=== PATIENT | male | born 1945 | race Caucasian/White ===

== ENCOUNTER → 2017-04-14 08:16 | Outpatient (REF) | payer MEDICARE, SELFPAY ==
[2017-04-14 09:04] LABS: Color, Urine Yellow (Yellow); Glucose, Dipstick 100 mg/dl (Normal); Ketone-Dipstick Negative (Negative); Leukocyte Esterase-Dipstick 500 /ul (Negative); Nitrite-Dipstick Negative (Negative); Occult Blood-Urine 250 /ul (Negative); Protein-Dipstick 100 mg/dl (Negative); Specific Gravity, Urine 1.015 (1.002-1.030); Urine Bilirubin Dipstick Negative (Negative); Urine Clarity Cloudy (Clear); Urine Urobilinogen Normal (Normal)
== END ==
LOC: OLS.ACW300 08:16
PROVIDERS: Visit Provider Family Medicine
DX: J69.0 Pneumonitis due to inhalation of food and vomit (principal); N18.6 End stage renal disease; R27.9 Unspecified lack of coordination; R54 Age-related physical debility; R26.2 Difficulty in walking, not elsewhere classified; Z47.89 Encounter for other orthopedic aftercare
CPT/HCPCS: 81002; 87077; 87086; 87088; 87186

== ENCOUNTER → 2017-04-15 06:00 | Outpatient (REF) | payer MEDICARE, SELFPAY ==
[2017-04-15 07:58] LABS: International Normalized Ratio 2.9; Prothrombin Time (Protime)PT. 29.1 SECONDS (11.7-14.9)
== END ==
LOC: OLS.ACW300 06:00
PROVIDERS: Visit Provider Family Medicine
DX: N18.6 End stage renal disease (principal); R27.9 Unspecified lack of coordination; R26.2 Difficulty in walking, not elsewhere classified; R54 Age-related physical debility; J69.0 Pneumonitis due to inhalation of food and vomit; Z47.89 Encounter for other orthopedic aftercare
CPT/HCPCS: 36415; 85610

== ENCOUNTER → 2017-04-18 05:00 | Outpatient (REF) | payer MEDICARE, SELFPAY ==
[2017-04-18 07:40] LABS: International Normalized Ratio 3.4; Prothrombin Time (Protime)PT. 33.1 SECONDS (11.7-14.9)
== END ==
LOC: OLS.ACW300 05:00
PROVIDERS: Visit Provider Family Medicine
DX: N18.6 End stage renal disease (principal); Z47.89 Encounter for other orthopedic aftercare; R26.2 Difficulty in walking, not elsewhere classified; R54 Age-related physical debility; J69.0 Pneumonitis due to inhalation of food and vomit; R27.9 Unspecified lack of coordination
CPT/HCPCS: 36415; 85610

== ENCOUNTER → 2017-04-21 05:00 | Outpatient (REF) | payer MEDICARE, SELFPAY ==
[2017-04-21 08:42] LABS: International Normalized Ratio 4.6; Prothrombin Time (Protime)PT. 41.4 SECONDS (11.7-14.9)
== END ==
LOC: OLS.ACW300 05:00
PROVIDERS: Visit Provider Family Medicine
DX: N18.6 End stage renal disease (principal); Z47.89 Encounter for other orthopedic aftercare; R26.2 Difficulty in walking, not elsewhere classified; R54 Age-related physical debility; R27.9 Unspecified lack of coordination; J69.0 Pneumonitis due to inhalation of food and vomit
CPT/HCPCS: 36415; 85610

== ENCOUNTER → 2017-04-22 04:30 | Outpatient (REF) | payer MEDICARE, SELFPAY ==
[2017-04-22 07:46] LABS: Prothrombin Time Fingerstick 63.2 SEC (11.9-14.4)
[2017-04-22 08:33] LABS: International Normalized Ratio 4.6; Prothrombin Time (Protime)PT. 41.9 SECONDS (11.7-14.9)
== END ==
LOC: OLS.ACW300 04:30
PROVIDERS: Visit Provider Family Medicine
DX: Z47.89 Encounter for other orthopedic aftercare (principal); R26.2 Difficulty in walking, not elsewhere classified; R54 Age-related physical debility; R27.9 Unspecified lack of coordination; J69.0 Pneumonitis due to inhalation of food and vomit; Z79.01 Long term (current) use of anticoagulants

== ENCOUNTER → 2017-04-23 05:00 | Outpatient (REF) | payer SELFPAY ==
[2017-04-23 06:56] LABS: Prothrombin Time (Protime)PT. 38.3 SECONDS (11.7-14.9)
[2017-04-23 07:06] LABS: International Normalized Ratio 4.1
== END ==
LOC: OLS.ACW300 05:00
PROVIDERS: Visit Provider Family Medicine
DX: Z47.89 Encounter for other orthopedic aftercare (principal); R26.2 Difficulty in walking, not elsewhere classified; R54 Age-related physical debility; R27.9 Unspecified lack of coordination; J69.0 Pneumonitis due to inhalation of food and vomit; Z79.01 Long term (current) use of anticoagulants

== ENCOUNTER → 2017-04-27 05:00 | Outpatient (REF) | payer MEDICARE, SELFPAY ==
[2017-04-27 08:02] LABS: International Normalized Ratio 2.1
[2017-04-27 09:31] LABS: Hematocrit 22.3 % (40-54); Hemoglobin 6.8 g/dl (13.0-16.5); Mean Corp Hgb Conc 30.5 g/gl (32-36); Mean Corpuscular Hgb 24.1 pg (27.0-32.0); Mean Corpuscular Volume 79.1 fL (80-94); Mean Platelet Vol. 11.4 fl (6.2-12.0); Platelet Count 529 K/mm3 (150-450); RBC Distribution Width CV 21.1 % (11.6-14.6); RBC Distribution Width SD 56.1 fl (35.1-43.9); Red Blood Count 2.82 M/mm3 (4.6-6.2); Scan Indicated on CBC? Y/N YES- FLAGS NOTED; White Blood Count 21.1 K/mm3 (4.4-11.0)
[2017-04-27 09:43] LABS: Lactic Acid 0.7 mmol/L (0.4-2.0)
[2017-04-27 09:51] LABS: Anion Gap 10 (5-15); BUN 92 mg/dL (7-18); BUN/Creat Ratio 21.4 RATIO (10-20); Calcium,Total 8.3 mg/dL (8.5-10.1); Chloride 110 mmol/L (98-107); EST Glomerular Filtration Rate 15 mL/min (>60); Est Glom Filt Rate - Afr Amer 18 mL/min (>60); Glucose 25 mg/dL (70-110); Potassium 4.9 mmol/L (3.5-5.1); Sodium Level 141 mmol/L (136-145)
[2017-04-27 09:55] LABS: Differential Comment SCAN
[2017-04-27 20:15] LABS: Vancomycin, Trough Level 11.3 ug/mL (5.0-15.0)
== END ==
LOC: OLS.ACW300 05:00
PROVIDERS: Visit Provider Family Medicine
DX: N18.6 End stage renal disease (principal); Z47.89 Encounter for other orthopedic aftercare; R26.2 Difficulty in walking, not elsewhere classified; R54 Age-related physical debility; R27.9 Unspecified lack of coordination; J69.0 Pneumonitis due to inhalation of food and vomit
CPT/HCPCS: 36415; 80048; 80202; 83605; 85027; 85610

== ENCOUNTER → 2017-04-29 07:00 | Outpatient (REF) | payer MEDICARE, SELFPAY ==
[2017-04-29 08:29] LABS: International Normalized Ratio 2.7; Prothrombin Time (Protime)PT. 27.9 SECONDS (11.7-14.9)
[2017-04-29 08:40] LABS: Vancomycin, Trough Level 20.8 ug/mL (5.0-15.0)
== END ==
LOC: OLS.ACW300 07:00
PROVIDERS: Visit Provider Family Medicine
DX: Z47.89 Encounter for other orthopedic aftercare (principal); R26.2 Difficulty in walking, not elsewhere classified; R54 Age-related physical debility; R27.9 Unspecified lack of coordination; J69.0 Pneumonitis due to inhalation of food and vomit; Z79.01 Long term (current) use of anticoagulants
CPT/HCPCS: 36415; 80202; 85610

== ENCOUNTER → 2017-04-30 | Outpatient (REF) | payer MEDICARE, SELFPAY ==
[2017-04-30 07:27] LABS: Anion Gap 14 (5-15); BUN 71 mg/dL (7-18); BUN/Creat Ratio 17.5 RATIO (10-20); Chloride 109 mmol/L (98-107); Creatinine, Serum 4.06 mg/dL (0.70-1.30); EST Glomerular Filtration Rate 16 mL/min (>60); Est Glom Filt Rate - Afr Amer 19 mL/min (>60); Glucose 162 mg/dL (70-110); Potassium 5.2 mmol/L (3.5-5.1); Sodium Level 140 mmol/L (136-145)
[2017-04-30 07:36] LABS: Hematocrit 24.8 % (40-54); Hemoglobin 7.1 g/dl (13.0-16.5); Mean Corp Hgb Conc 28.6 g/gl (32-36); Mean Corpuscular Hgb 22.7 pg (27.0-32.0); Mean Corpuscular Volume 79.2 fL (80-94); Mean Platelet Vol. 10.8 fl (6.2-12.0); Platelet Count 609 K/mm3 (150-450); RBC Distribution Width CV 22.4 % (11.6-14.6); RBC Distribution Width SD 62.1 fl (35.1-43.9); Red Blood Count 3.13 M/mm3 (4.6-6.2); White Blood Count 14.7 K/mm3 (4.4-11.0)
[2017-04-30 07:38] LABS: International Normalized Ratio 2.9; Prothrombin Time (Protime)PT. 29.5 SECONDS (11.7-14.9)
[2017-04-30 07:39] LABS: Scan Indicated on CBC? Y/N YES- FLAGS NOTED
== END | disposition home or self-care (01) ==
LOC: OLS.ACW300 05:00
PROVIDERS: Visit Provider Family Medicine
DX: Z47.89 Encounter for other orthopedic aftercare (principal); R26.2 Difficulty in walking, not elsewhere classified; R54 Age-related physical debility; R27.9 Unspecified lack of coordination; J69.0 Pneumonitis due to inhalation of food and vomit; Z79.01 Long term (current) use of anticoagulants
CPT/HCPCS: 36415; 80048; 85027; 85610

== ENCOUNTER → 2017-05-01 06:00 | Outpatient (REF) | payer MEDICARE, SELFPAY ==
[2017-05-01 08:37] LABS: Prothrombin Time (Protime)PT. 30.2 SECONDS (11.7-14.9)
[2017-05-01 21:39] LABS: Vancomycin, Trough Level 26.3 ug/mL (5.0-15.0)
== END ==
LOC: OLS.ACW300 06:00
PROVIDERS: Visit Provider Family Medicine
DX: Z47.89 Encounter for other orthopedic aftercare (principal); R26.2 Difficulty in walking, not elsewhere classified; R54 Age-related physical debility; R27.9 Unspecified lack of coordination; J69.0 Pneumonitis due to inhalation of food and vomit; Z79.01 Long term (current) use of anticoagulants
CPT/HCPCS: 36415; 80202; 85610

== ENCOUNTER → 2017-05-02 05:00 | Outpatient (REF) | payer MEDICARE, SELFPAY ==
[2017-05-02 06:49] LABS: International Normalized Ratio 3.1; Prothrombin Time (Protime)PT. 30.6 SECONDS (11.7-14.9)
[2017-05-02 06:52] LABS: Absolute Lymphocyte Count 1.48 X10^3/ul (0.83-4.51); Absolute Neutrophil Count 9.7 X10^3/uL (2.0-7.7); Basophil# 0.05 X10^3/uL; Basophil% 0.4 % (0-1); Eosinophil# 1.06 X10^3/uL; Eosinophils% 7.9 % (0-5); Hematocrit 25.5 % (40-54); Hemoglobin 7.5 g/dl (13.0-16.5); Lymphocyte # 1.48 X10^3/ul (4.0); Mean Corp Hgb Conc 29.4 g/gl (32-36); Mean Corpuscular Hgb 23.2 pg (27.0-32.0); Mean Corpuscular Volume 78.9 fL (80-94); Mean Platelet Vol. 10.6 fl (6.2-12.0); Monocyte% 8.9 % (0-10); Neutrophil # 9.65 X10^3/uL (2.7-7.7); Neutrophil % 71.4 % (47-70); Platelet Count 617 K/mm3 (150-450); RBC Distribution Width CV 22.7 % (11.6-14.6); RBC Distribution Width SD 63.1 fl (35.1-43.9); Red Blood Count 3.23 M/mm3 (4.6-6.2); White Blood Count 13.5 K/mm3 (4.4-11.0)
[2017-05-02 06:55] LABS: Differential Indicated SCAN CRITERIA MET; POSITIVE COUNT NO; POSITIVE DIFFERENTIAL NO; POSITIVE MORPHOLOGY YES
[2017-05-02 07:09] LABS: Anion Gap 14 (5-15); BUN 70 mg/dL (7-18); BUN/Creat Ratio 17.2 RATIO (10-20); Chloride 115 mmol/L (98-107); Creatinine, Serum 4.07 mg/dL (0.70-1.30); EST Glomerular Filtration Rate 16 mL/min (>60); Est Glom Filt Rate - Afr Amer 19 mL/min (>60); Glucose 179 mg/dL (70-110); Potassium 4.8 mmol/L (3.5-5.1); Sodium Level 145 mmol/L (136-145)
[2017-05-02 07:14] LABS: Anisocytosis 1+; Differential Comment SCAN; Hypochromasia 1+; Microcytosis 1+; Polychromasia 1+
== END ==
LOC: OLS.ACW300 05:00
PROVIDERS: Visit Provider Family Medicine
DX: Z47.89 Encounter for other orthopedic aftercare (principal); R26.2 Difficulty in walking, not elsewhere classified; R27.9 Unspecified lack of coordination; J69.0 Pneumonitis due to inhalation of food and vomit; Z79.01 Long term (current) use of anticoagulants
CPT/HCPCS: 36415; 80048; 85025; 85610

== ENCOUNTER → 2017-05-04 20:00 | Outpatient (REF) | payer MEDICARE, SELFPAY ==
[2017-05-04 21:14] LABS: Vancomycin, Trough Level 28.8 ug/mL (5.0-15.0)
== END ==
LOC: OLS.ACW300 20:00
PROVIDERS: Visit Provider Family Medicine
DX: Z47.89 Encounter for other orthopedic aftercare (principal); R26.2 Difficulty in walking, not elsewhere classified; R54 Age-related physical debility; R27.9 Unspecified lack of coordination; J69.0 Pneumonitis due to inhalation of food and vomit
CPT/HCPCS: 36415; 80202

== ENCOUNTER → 2017-05-05 05:00 | Outpatient (REF) | payer MEDICARE, SELFPAY ==
[2017-05-05 10:01] LABS: Absolute Lymphocyte Count 1.95 X10^3/ul (0.83-4.51); Absolute Neutrophil Count 7.7 X10^3/uL (2.0-7.7); Basophil# 0.06 X10^3/uL; Basophil% 0.5 % (0-1); Eosinophil# 0.85 X10^3/uL; Eosinophils% 7.2 % (0-5); Hematocrit 24.1 % (40-54); Lymphocyte # 1.95 X10^3/ul (4.0); Lymphocyte % 16.6 % (19-41); Mean Platelet Vol. 10.5 fl (6.2-12.0); Monocyte# 1.19 X10^3/uL; Monocyte% 10.1 % (0-10); Neutrophil # 7.66 X10^3/uL (2.7-7.7); Neutrophil % 65.3 % (47-70); Platelet Count 578 K/mm3 (150-450); RBC Distribution Width CV 23.3 % (11.6-14.6); RBC Distribution Width SD 64.3 fl (35.1-43.9); Red Blood Count 3.05 M/mm3 (4.6-6.2); White Blood Count 11.8 K/mm3 (4.4-11.0)
[2017-05-05 10:03] LABS: Differential Indicated SCAN CRITERIA MET; POSITIVE COUNT NO; POSITIVE DIFFERENTIAL NO; POSITIVE MORPHOLOGY YES
[2017-05-05 10:05] LABS: Prothrombin Time (Protime)PT. 46.6 SECONDS (11.7-14.9)
[2017-05-05 10:09] LABS: Anion Gap 14 (5-15); BUN 65 mg/dL (7-18); BUN/Creat Ratio 14.6 RATIO (10-20); Calcium,Total 8.2 mg/dL (8.5-10.1); Chloride 118 mmol/L (98-107); Creatinine, Serum 4.46 mg/dL (0.70-1.30); EST Glomerular Filtration Rate 14 mL/min (>60); Est Glom Filt Rate - Afr Amer 17 mL/min (>60); Glucose 147 mg/dL (70-110); Potassium 4.9 mmol/L (3.5-5.1); Sodium Level 146 mmol/L (136-145)
[2017-05-05 10:16] LABS: International Normalized Ratio 5.3
== END ==
LOC: OLS.ACW300 05:00
PROVIDERS: Visit Provider Family Medicine
DX: Z47.89 Encounter for other orthopedic aftercare (principal); R26.2 Difficulty in walking, not elsewhere classified; R54 Age-related physical debility; R27.9 Unspecified lack of coordination; J69.0 Pneumonitis due to inhalation of food and vomit; Z79.01 Long term (current) use of anticoagulants
CPT/HCPCS: 36415; 80048; 85025; 85610